=== PATIENT | male | born 1940 | race Caucasian/White ===

== ENCOUNTER 2018-05-18 10:55 | Emergency (ER) | payer OTHER, BC ==
[~2018-05-18] VITALS: Ht 175.3 cm; Wt 74.8 kg
[2018-05-18] MEDS ORDERED: DICLOFENAC SODI50 MG PO (13:44)
== END 2018-05-18 14:00 | disposition home or self-care (01) ==
LOC: ER 10:55
DX: S80.02XA Contusion of left knee, initial encounter (principal); M25.571 Pain in right ankle and joints of right foot; W07.XXXA Fall from chair, initial encounter; Y93.89 Activity, other specified; Y92.59 Other trade areas as the place of occurrence of the external cause; Y99.8 Other external cause status